=== PATIENT | female | born 1970 | race Caucasian/White ===

== ENCOUNTER 2017-03-15 19:48 | Observation (INO) | payer MEDICAID, OTHER ==
[2017-03-15] MEDS ORDERED: Iohexol 240 (50 ml) PO ONE (20:31)
[2017-03-15] MEDS ORDERED: Sodium Chloride 0.9% 1,000 ML IV STA (20:31)
[2017-03-15 20:41] LABS: VENOUS BLOOD GAS BASE EXCESS -7.1 mmol/L (0.0-2.0); VENOUS BLOOD GAS PCO2 38 mmHg (40-60)
[2017-03-15 20:43] LABS: BASO # 0.1 K/uL (0.0-0.2); BASO % 0.4 % (0.0-2.0); EOS % 0.2 % (0.0-4.0); HEMATOCRIT 43.2 % (34.0-47.0); LYMPH # 1.5 K/uL (1.0-4.3); LYMPH % 11.1 % (20.0-40.0); MEAN CELL VOLUME 83.7 fl (81.0-99.0); MEAN CORPUSCULAR HEMOGLOBIN 27.1 pg (27.0-31.0); MEAN CORPUSCULAR HGB CONC 32.4 g/dL (33.0-37.0); MEAN PLATELET VOLUME 8.5 fl (7.2-11.7); MONO # 0.6 K/uL (0.0-0.8); MONO % 4.3 % (0.0-10.0); RED CELL DISTRIBUTION WIDTH 17.7 % (11.5-14.5); WHITE BLOOD COUNT 13.1 K/uL (4.8-10.8)
[2017-03-15 20:59] LABS: ALB/GLOB RATIO 1.2 (1.0-2.1); ALKALINE PHOSPHATASE 99 U/L (38-126); ALT/SGPT 52 U/L (9-52); AST/SGOT 40 U/L (14-36); BILIRUBIN,TOTAL 0.7 mg/dl (0.2-1.3); BLOOD UREA NITROGEN 4 mg/dl (7-17); CALCIUM 9.8 mg/dL (8.4-10.2); CARBON DIOXIDE 18 mmol/L (22-30); CHLORIDE 109 mmol/L (98-107); GFR AFRICAN-AMERICAN > 60; GLUCOSE,RANDOM 117 mg/dL (65-105); LIPASE 282 U/L (23-300); MAGNESIUM 1.6 MG/DL (1.6-2.3); POTASSIUM 4.1 MMOL/L (3.6-5.0); SODIUM 143 mmol/l (132-148)
[2017-03-15] MEDS ORDERED: Iohexol 240 (50 ml) ONE (21:05)
--- NOTE | 2017-03-15 21:19 | ED PDOC ---
HPI: Abdomen Time Seen by Provider: 03/15/17 20:07 Chief Complaint (Nursing): Abdominal Pain Chief Complaint (Provider): Abdominal Pain History Per: Patient History/Exam Limitations: no limitations Onset/Duration Of Symptoms: Days (x1) Additional Complaint(s): Tomasa Castillo is a 46 year old female who presents to the emergency department with intermittent lower, crampy abdominal pain that wax and wane associated with watery, non-bloody diarrhea and intractable, non-bloody, non-bilious vomiting and subjective chills ongoing for 1 day. Denied fever, dysuria or hematuria. Patient stated she recently had bariatric surgery on 02/11/17 and discharged from hospital on 02/19/17. She had finished Flagel antibiotic 1 week ago for diarrhea status post surgery. PMD: Marina Hernandez MD Past Medical History Reviewed: Historical Data, Nursing Documentation, Vital Signs Vital Signs: Last Vital Signs Temp 98.0 F 03/16/17 00:15 Pulse 78 03/16/17 00:15 Resp 18 03/16/17 00:15 BP 115/60 03/16/17 00:15 Pulse Ox 96 03/16/17 00:20 - Surgical History Other surgeries: bariatric; foot - Family History Family History: States: Unknown Family Hx - Social History Current smoker - smoking cessation education provided: No Alcohol: None Drugs: Denies - Immunization History Hx Tetanus Toxoid Vaccination: No Hx Influenza Vaccination: Yes Hx Pneumococcal Vaccination: No - Home Medications Home Medications: Ambulatory Orders Medication Instructions Recorded Ibuprofen [Motrin] 600 mg PO Q6 #30 tab 11/29/15 Tylenol 2 tab PO PRN PRN 11/29/15 Biotin [Biotin] 5,000 mcg PO DAILY 03/15/17 Butalb/Acetaminophen/Caffeine 473 ml PO 03/15/17 [Vanatol Lq Oral Solution] Oxycodone HCl [Oxycodone HCl] 5 ml PO Q6 PRN 03/15/17 Ciprofloxacin HCl [Cipro] 500 mg PO BID #20 tab 03/16/17 Ondansetron ODT [Zofran ODT] 1 odt PO Q6 PRN #30 odt 03/16/17 Saccharomyces Boulardi [Florastor] 500 mg PO BID #28 cap 03/16/17 metroNIDAZOLE [Flagyl] 500 mg PO TID #30 tab 03/16/17 - Allergies Allergies/Adverse Reactions: Allergies Allergy/AdvReac Type Severity Reaction Status Date / Time No Known Allergies Allergy Verified 03/15/17 23:45 Review of Systems ROS Statement: Except As Marked, All Systems Reviewed And Found Negative (and as per HPI) Constitutional: Positive for: Chills (subjective). Negative for: Fever Gastrointestinal: Positive for: Vomiting (intractable, non-bloody, non-bilious) , Abdominal Pain (intermittent lower, crampy that wax and wane), Diarrhea ( watery, non-bloody ) Genitourinary Female: Negative for: Dysuria, Hematuria Physical Exam - Reviewed Nursing Documentation Reviewed: Yes Vital Signs Reviewed: Yes - Physical Exam Appears: Positive for: Non-toxic, In Acute Distress Head Exam: Positive for: ATRAUMATIC, NORMOCEPHALIC Skin: Positive for: Warm, Dry Eye Exam: Positive for: EOMI, PERRL ENT: Positive for: Other (dry muc membranes) Neck: Positive for: Painless ROM, Supple Cardiovascular/Chest: Positive for: Regular Rate, Rhythm, Chest Non Tender. Negative for: Murmur Respiratory: Positive for: Normal Breath Sounds. Negative for: Wheezing Gastrointestinal/Abdominal: Positive for: Soft, Tenderness (mild suprapubic). Negative for: Mass, Distended, Guarding Back: Positive for: Normal Inspection. Negative for: Vertebral Tenderness Extremity: Positive for: Normal ROM. Negative for: Deformity Lymphatic: Negative for: Adenopathy Neurologic/Psych: Positive for: Alert. Negative for: Motor/Sensory Deficits - Laboratory Results Result Diagrams: 03/15/17 20:39 03/15/17 20:39 Interpretation Of Abn Labs: C diff ag positive but toxin negative - ECG O2 Sat by Pulse Oximetry: 96 (RA) Pulse Ox Interpretation: Normal Medical Decision Making Medical Decision Making: Initial Impression: Abdominal pain; Diarrhea Initial Plan: * CT ABD/Pelvis with PO and IV contrast * Urine dipstick * Urine * CXR * Omnipaque 50ml PO * Morphine 4mg IVP * NS 1,000ml IV per 1,000mls/hr * Zofran 8mg IV * Ova and parasite * Stool culture * C Diff Toxin Scribe Attestation: Documented by Allison Carrasco, acting as a scribe for Lidya Lundy MD. Provider Scribe Attestation: All medical record entries made by the Scribe were at my direction and personally dictated by me. I have reviewed the chart and agree that the record accurately reflects my personal performance of the history, physical exam, medical decision making, and the department course for this patient. I have also personally directed, reviewed, and agree with the discharge instructions and disposition. ED OBSERVATION - Progress Note Progress Note: Accession No. : [id number] Patient Name / ID : ANNA RANDOLPH / [id number] Exam Date : 03/15/2017 22:50:21 ( Approved ) Study Comment : Sex / Age : F / 46Y Creator : KEYANNA YATES Dictator : Network Desktop Support Specialist : Insole Taper : KEYANNA YATES Approver2 : Report Date : 03/15/2017 23:51:00 My Comment : [facility] Division of Radiology [address] [place] [address] Tel. no. Patient Name: TOMASA CASTILLO Pt. Address: [address] [place] [address] Rec #: [id number] [place] [address]: Kamron JACKSON, Lidya Rojo Pt Order Location: [facility] : 1970 Female Age: 46 Order #: [id number] Reason for exam: lower abd pain h/o gastric bypass CT Scan ABD PELVIS PO IV CONTRAST Exam Date: 03/15/17 This imaging exam was performed at [facility] EXAM: CT Abdomen and Pelvis With Intravenous Contrast CLINICAL HISTORY: 46 years old, female; Signs and symptoms; Other: Abd pain n v d; Prior surgery; Surgery date: <1 month; Surgery type: Bariatric SX 02/11/2017 gastric bypass; Additional info: Lower abd pain h/o gastric bypass TECHNIQUE: Axial computed tomography images of the abdomen and pelvis with intravenous contrast. All CT scans at this facility use one or more dose reduction techniques, viz.: automated exposure control; ma/kV adjustment per patient size (including targeted exams where dose is matched to indication; i.e. head); or iterative reconstruction technique. Coronal and sagittal reformatted images were created and reviewed. CONTRAST: 98 mL of OMNIPAQUE administered intravenously. COMPARISON: No relevant prior studies available. FINDINGS: Lower thorax: The bilateral lung bases are clear. ABDOMEN: Liver: No acute findings. Gallbladder and bile ducts: The gallbladder is decompressed. No calcified stones. No significant intra- or extrahepatic biliary ductal dilation. Pancreas: Enhances homogeneously. No ductal dilation. No discrete mass. Spleen: A small amount of free fluid is identified adjacent to the splenic hilum. Adrenals: No acute findings. Kidneys and ureters: No acute findings. No hydronephrosis or renal calculi. No discrete solid mass. PELVIS: Bladder: No acute findings. Reproductive: No acute findings. Appendix: The appendix is hyperemic, fluid filled and mildly distended measuring 7mm in width as seen on series 601, image 48. No significant periappendiceal inflammatory change is identified. ABDOMEN and PELVIS: Stomach and bowel: Postoperative change within the upper abdomen, consistent with patient's history. Diffuse mural thickening is identified within the colon, with adjacent inflammatory change, findings suggesting acute colitis. Peritoneum: As above. Lymph nodes: No pathologically enlarged lymph nodes. Vasculature: Unremarkable. Bones: No acute fracture. IMPRESSION: Findings suggesting acute colitis, as detailed above. Additional findings within the appendix which may represent patient's baseline , for which clinical correlation is needed. Free fluid adjacent to the splenic hilum is a finding of uncertain clinical significance. Dictated By: Keyanna Yates MD Dictated Date/Time: 03/15/17 2351 Signed By: Keyanna Yates MD Date Signed: 2350 Transcribed By: JR Transcribe Date/Time : 03/15/172350 SARAH/LISSETH Pt feels markedly better. Abdomen benign on reevaluation. DW pt findings and plan of care. Offered observation in hospital since she was given Morphine and she had recently been on antibiotics for same. But she desires to attempt home treatment first and follow up. Strict followup appointment in 48 hours with PMD. Advised to return to ER immediately for worsening symptoms (intractable vomiting, severe pain, minimal improvement over 48 hours, etc.) Disposition - Clinical Impression Clinical Impression: Colitis, Abdominal pain - Disposition Disposition Time: 20:30 Condition: IMPROVED
[2017-03-15 22:13] VITALS: RESP 18
[2017-03-15] MEDS ORDERED: Sodium Chloride 0.9% 100 ML ONE (22:49)
[2017-03-15] MEDS ORDERED: Iohexol 300 100 ML IJ ONE (22:49)
--- NOTE | 2017-03-15 23:51 | CT ---
EXAM: CT Abdomen and Pelvis With Intravenous Contrast CLINICAL HISTORY: 46 years old, female; Signs and symptoms; Other: Abd pain n v d; Prior surgery; Surgery date: <1 month; Surgery type: Bariatric SX 02/11/2017 gastric bypass; Additional info: Lower abd pain h/o gastric bypass TECHNIQUE: Axial computed tomography images of the abdomen and pelvis with intravenous contrast. All CT scans at this facility use one or more dose reduction techniques, viz.: automated exposure control; ma/kV adjustment per patient size (including targeted exams where dose is matched to indication; i.e. head); or iterative reconstruction technique. Coronal and sagittal reformatted images were created and reviewed. CONTRAST: 98 mL of OMNIPAQUE administered intravenously. COMPARISON: No relevant prior studies available. FINDINGS: Lower thorax: The bilateral lung bases are clear. ABDOMEN: Liver: No acute findings. Gallbladder and bile ducts: The gallbladder is decompressed. No calcified stones. No significant intra- or extrahepatic biliary ductal dilation. Pancreas: Enhances homogeneously. No ductal dilation. No discrete mass. Spleen: A small amount of free fluid is identified adjacent to the splenic hilum. Adrenals: No acute findings. Kidneys and ureters: No acute findings. No hydronephrosis or renal calculi. No discrete solid mass. PELVIS: Bladder: No acute findings. Reproductive: No acute findings. Appendix: The appendix is hyperemic, fluid filled and mildly distended measuring 7mm in width as seen on series 601, image 48. No significant periappendiceal inflammatory change is identified. ABDOMEN and PELVIS: Stomach and bowel: Postoperative change within the upper abdomen, consistent with patient's history. Diffuse mural thickening is identified within the colon, with adjacent inflammatory change, findings suggesting acute colitis. Peritoneum: As above. Lymph nodes: No pathologically enlarged lymph nodes. Vasculature: Unremarkable. Bones: No acute fracture. IMPRESSION: Findings suggesting acute colitis, as detailed above. Additional findings within the appendix which may represent patient's baseline, for which clinical correlation is needed. Free fluid adjacent to the splenic hilum is a finding of uncertain clinical significance.
[2017-03-16 00:16] VITALS: BP 115/60; PULSE 78; TEMP 98
[2017-03-16 00:18] VITALS: O2SAT 96
--- NOTE | 2017-03-16 08:55 | RAD ---
HISTORY: recent pneumonia dehydration COMPARISON: None FINDINGS: LUNGS: The lungs are well inflated and clear. PLEURA: No significant pleural effusion identified, no pneumothorax apparent. CARDIOVASCULAR: Normal. OSSEOUS STRUCTURES: No significant abnormalities. VISUALIZED UPPER ABDOMEN: Normal. OTHER FINDINGS: None. IMPRESSION: No active pulmonary disease.
== END 2017-03-16 00:25 | disposition home or self-care (01) ==
LOC: H.ER 19:48 → H.EROBSV 20:30
PROVIDERS: ADMIT Emergency Medicine; ATTEND Emergency Medicine
DX: K52.9 Noninfective gastroenteritis and colitis, unspecified (principal); Z98.84 Bariatric surgery status
CPT/HCPCS: 71010; 74177; 80053; 81025; 82803; 83690; 83735; 84100; 85025; 87045; 87177; 87209; 87230; 96374; 96376; 99284; G0378; J2270; J2405; J7040; Q9966; Q9967